=== PATIENT | female | born 1960 | race Caucasian/White ===

== ENCOUNTER 2018-05-21 07:16 | Inpatient (IN) ==
--- NOTE | 2018-05-20 21:39 | Discharge Summary ---
Orders not resulted at time of discharge: Pending orders 05/21/18 01:00 XR post op reverse apex LT [XR] Routine Hemoglobin and Hematocrit [HEME] Routine Date of Encounter: 05/21/18 Time of Encounter: 17:00 - Discharge Diagnosis (1) Osteoarthritis of left shoulder Priority: Primary Status: Chronic Qualifiers: Osteoarthritis type: unspecified Qualified Code(s): M19.012 - Primary osteoarthritis, left shoulder (2) Status post reverse total arthroplasty of left shoulder Priority: Primary Status: Acute (3) Asthma Priority: Secondary Status: Chronic Qualifiers: Asthma severity: unspecified severity Asthma persistence: unspecified Asthma complication type: unspecified Qualified Code(s): J45.909 - Unspecified asthma, uncomplicated (4) HTN (hypertension) Priority: Secondary Status: Chronic Qualifiers: Hypertension type: unspecified Qualified Code(s): I10 - Essential (primary) hypertension (5) Hypothyroid Priority: Secondary Status: Chronic Qualifiers: Hypothyroidism type: unspecified Qualified Code(s): E03.9 - Hypothyroidism, unspecified (6) Keloid Priority: Secondary Status: Chronic (7) HLD (hyperlipidemia) Priority: Secondary Status: Chronic Qualifiers: Hyperlipidemia type: unspecified Qualified Code(s): E78.5 - Hyperlipidemia, unspecified (8) Obesity Priority: Secondary Status: Chronic Qualifiers: Obesity type: unspecified obesity type Obesity classification: adult class 3 (BMI >= 40) Serious obesity comorbidity presence: unspecified whether serious comorbidity present Body mass index: unspecified BMI Qualified Code(s): E66.01 - Morbid (severe) obesity due to excess calories (9) GRACIELA (obstructive sleep apnea) Priority: Secondary Status: Chronic (10) Osteoporosis Priority: Secondary Status: Chronic Qualifiers: Osteoporosis type: unspecified Presence of current pathological fracture: unspecified Qualified Code(s): M81.0 - Age-related osteoporosis without current pathological fracture (11) OAB (overactive bladder) Priority: Secondary Status: Chronic (12) GERD (gastroesophageal reflux disease) Priority: Secondary Status: Chronic Qualifiers: Esophagitis presence: esophagitis presence not specified Qualified Code(s): K21.9 - Gastro-esophageal reflux disease without esophagitis - Hospital Course Hospital course: Ms. Weber is a 57 year old female Date of procedure: 05/21/18 Pre-op diagnosis: Shoulder cuff tear arthropathy left Post-op diagnosis: same Procedure: Total Shoulder Replacment Reverse, left Patient discharged home same day as surgery Keep outpatient follow up as scheduled - Time Spent with Patient Total time spent providing and/or coordinating discharge services: - Discharge Medications Home Medications: BuPROPion SR (12 HR) [Wellbutrin SR] 150 mg PO BID 04/15/16 [History] Enalapril Maleate [Vasotec] 10 mg PO QPM 04/15/16 [History] Fluticasone/Salmeterol [Advair 500-50 Diskus] 1 puff IH BID 04/15/16 [History] Gabapentin [Neurontin] 1,200 mg PO TID 04/15/16 [History] Levothyroxine [Synthroid] 50 mcg PO DAILY 04/15/16 [History] Montelukast [Singulair] 10 mg PO QPM 04/15/16 [History] Oxybutynin [Ditropan] 5 mg PO BID 04/15/16 [History] Albuterol Neb [Proventil Neb] 2.5 mg IH Q6H PRN 05/21/18 [History] Albuterol Sulfate [Ventolin Hfa] 2 puff IN QID PRN 05/21/18 [History] Cyanocobalamin (Vitamin B-12) [Vitamin B12] 1,000 mcg PO DAILY 05/21/18 [History] Docusate Sodium [Colace] 100 mg PO BID 5 Days #10 capsule 05/21/18 [Rx] Furosemide [Lasix] 20 mg PO DAILY 05/21/18 [History] OxyCODONE Immed Rel [Roxicodone 5 MG] 5 mg PO Q6HR PRN 7 Days #28 tablet 05/21/18 [Rx] Sertraline [Zoloft] 100 mg PO DAILY 05/21/18 [History] raNITIdine HCl [Zantac] 150 mg PO BID 05/21/18 [History] Allergies/Adverse Reactions: Allergy/AdvReac Type Severity Reaction Status Date / Time Buspirone [From BuSpar] Allergy See Verified 05/21/18 09:58 Comments Cromolyn [From Intal] Allergy SWELLING Verified 05/21/18 09:58 morphine Allergy Itching Verified 05/21/18 09:58 Sulfa (Sulfonamide Allergy Itching Verified 05/21/18 09:58 Antibiotics) Date of admission: 05/21/18 Primary care physician: Michael Hyman DO Discharging clinician: Zacarias Muñiz Anticipated date of discharge: 05/21/18 - VTE Documentation of Mechanical Device: Venous foot pump, device - Patient Status Disposition: Home, Self-Care Condition: Good Functional capacity at discharge: independent ambulation Overall status at discharge: patient is progressing back to baseline - Discharge Instructions Follow Up With: Michael Hyman DO [Primary Care Provider] - Additional Instructions: Discharge Instructions: Total Shoulder Please call [facility] ([phone]), your Primary Care Physician, or report to the Emergency Room if you have any of the following symptoms: Nausea, vomiting, fever greater that 101.5, swelling, chest pain, shortness of breath, increased pain/redness/drainage/odor for your incision site, numbness/tingling, or any other concerning symptoms. ACTIVITY: Always keep your arm in the sling. Do not raise your arm away from your body. Do not use your arm to help with getting in or out of bed. No weight bearing permitted. Only perform those exercises given to you by your therapist. Incentive Spirometer 10 times an hour. MEDICATIONS: Upon discharge resume your home medications. Take all the medications as prescribed. Take a stool softener if taking narcotic pain medications. Stool softeners are only effective if you drink enough fluids. Drink 6-8 glass of water or fluids a day, unless this is not allowed for another health problem. Despite using stool softeners, if you haven't had a bowel movement in 3 days, please switch to a gentle laxative. Gentle laxatives are sold over the counter. You should have a bowel movement within 24 hours, if not call the office. You will be discharged from the hospital with a prescription for pain medication. You are encouraged to decrease the use of narcotic pain medication as tolerated. Should you require a refill, please call the office. [facility] prescribes narcotic pain medication for only 4-6 weeks after surgery. If you require pain medication beyond this time period, you may be referred to your Primary Care Physician or to the Pain Clinic for further evaluation. Plan ahead for refills on pain medication as many narcotics either need to be picked up at the office or mailed. It is best to call 48-72 hours in advance of needing a prescription refill so you don't run out of medication. To help control the post-operative pain, you may take NSAIDs (Aleve,Advil, Motrin, Ibuprofen, Naprosyn) or Tylenol as prescribed on the bottle in addition to the pain medication. WOUND CARE: Leave the dressing on for 7-10 days. You may change the dressing if it becomes saturated greater than 50%. Do not get the dressing wet at anytime. Wash your hands with antibacterial soap, rinse and dry prior to any wound care. If you have rishabh the visiting nurse or rehab facility can remove the stapes 10-14 days after surgery and place steri-strips across the wound. Leave the steri-strips in place until they fall off on their own. You may let water from the shower run on top of the steri-strips. If you do not have a visiting nurse or rehab facility, you will need to return to the office at 10-14 days for the rishabh to be removed. If you have itching or redness around the dressing call the office. FOLLOW-UP: Please follow up with your surgeon in the orthopedic clinic, as scheduled - Diet and Activity Activity: as per physical therapy Diet: advance to your usual diet
[2018-05-21] MEDS ORDERED: CeFAZolin Syr 2,000MG/20 ML 2,000 MG/20 ML SYRINGE IVPB ONE (07:32)
[2018-05-21] MEDS ORDERED: Ringers Solution, Lactated 1,000 ML IVC SCH ×2 (07:45→11:53)
--- NOTE | 2018-05-21 07:52 | History & Physical Report ---
Date of Encounter: 05/21/18 Time of Encounter: 07:52 24 Hour HP Update - Instructions Instructions: If the History and Physical is less than 30 days old and was completed prior to A.M. admission and or procedure and has NOT been updated on calendar day of procedure please complete this update prior to performing procedure. - Update Patient reports changes in Medical Condition: No Changes in examination, assessment, or condition: No Changes in Medication: No Preop tests/diagnostics Reviewed: Yes Surgery Remains Indicated: Yes Consent for Planned Operative Procedure(s) Verified: Yes - Pre-Operative Checklist Preoperative Checklist Indicated: No Prophylactic Antibiotic Ordered: Yes Is VTE Prophylaxis Indicated?: Yes
[2018-05-21] MEDS ORDERED: Albuterol 2.5 MG/3 ML NEBULIZER IH ONE (07:54)
--- NOTE | 2018-05-21 08:05 | Anesthesia Evaluation PreOp ---
Date of Encounter: 05/21/18 Time of Encounter: 08:03 - Past History Planned Operation: LEFT TSA Cardiac History: CHF (TYRON LE EDEMA - ON LASIX), HTN Pulmonary History: Asthma, GRACIELA Dx (CLINICALLY, SCHEDULED FOR SLEEP STUDY) GAMBLING MONITOR History: Other (ANXIETY, DEPRESSION, LOW BACK PAIN, SCIATICA) Other Medical History: Thyroid, GERD (OCCASIONAL HEARTBURN, DYSPHAGIA), Other (MORBID OBESITY, BMI 42) Anesthesia History: No Prior Anesthetic Complications, Past Anesthesia (SEVERAL) Alcohol Use: none Drug use: none Medications and Allergies BuPROPion SR (12 HR) [Wellbutrin SR] 150 mg PO BID 04/15/16 [History] Enalapril Maleate [Vasotec] 10 mg PO HS 04/15/16 [History] Fluticasone/Salmeterol [Advair 500-50 Diskus] 1 puff IH BID 04/15/16 [History] Gabapentin [Neurontin] 600 mg PO TID 04/15/16 [History] Levothyroxine [Synthroid] 50 mcg PO DAILY 04/15/16 [History] Montelukast [Singulair] 10 mg PO HS 04/15/16 [History] Oxybutynin [Ditropan] 5 mg PO TID 04/15/16 [History] Allergy/AdvReac Type Severity Reaction Status Date / Time Buspirone [From BuSpar] Allergy See Verified 05/13/18 17:00 Comments Cromolyn [From Intal] Allergy See Verified 05/13/18 17:00 Comments morphine Allergy Itching Verified 05/13/18 17:00 Sulfa (Sulfonamide Allergy Hives Verified 05/13/18 17:00 Antibiotics) - Meds/Allergy Pre-op Review Medications Reviewed: Yes Allergies Reviewed: Yes Beta Blockers on Current Med List: No Anesthesia Exam O2 Sat Height 1.57 m Height 1.57 m Height 1.57 m Weight 105.233 kg Weight 105.233 kg Weight 105.233 kg O2 Sat by Pulse Oximetry 96 O2 Sat by Pulse Oximetry 96 Vital Signs Temp Pulse Resp BP Pulse Ox 98.5 F 83 18 124/69 96 05/21/18 07:35 05/21/18 07:35 05/21/18 07:35 05/21/18 07:35 05/21/18 07:35 NPO (# of Hours): >MN - HEENT Mallampati: I Teeth: Normal Oral Opening: Greater than 3 - Cardiac Rhythm: Regular - Pulmonary Breath Sounds: bilateral Clear Respiratory Effort: Symmetrical Anesthesia Assess/Plan ASA Score: 3 Anesthetic Plan: General, Regional Nerve Block (FOR POST OPERATIVE PAIN CONTROL) Regional Nerve Block Plan: Supraclavicular, Intercostobracial Monitoring Plan: Standard Monitors Recovery Plan: PACU
--- NOTE | 2018-05-21 08:07 | Physician Discharge Referral ---
Home Health/Hosp Referral Info Transfer to: Home Health Attending Provider: Dr. Zacarias Muñiz - Diagnosis (1) Osteoarthritis of left shoulder Priority: Primary Status: Chronic (2) Status post reverse total arthroplasty of left shoulder Priority: Primary Status: Acute (3) Asthma Priority: Secondary Status: Chronic (4) HTN (hypertension) Priority: Secondary Status: Chronic (5) Hypothyroid Priority: Secondary Status: Chronic (6) Keloid Priority: Secondary Status: Chronic (7) HLD (hyperlipidemia) Priority: Secondary Status: Chronic (8) Obesity Priority: Secondary Status: Chronic (9) GRACIELA (obstructive sleep apnea) Priority: Secondary Status: Chronic (10) Osteoporosis Priority: Secondary Status: Chronic (11) OAB (overactive bladder) Priority: Secondary Status: Chronic (12) GERD (gastroesophageal reflux disease) Priority: Secondary Status: Chronic - Respiratory Orders Smoking Cessation: Smoking cessation has been advised. For more information, call the [place] Tobacco Quit Line at 1-348-WVAJ-NOW. - Dressing/Wound Care Site: left shoulder Type of Dressing/Treatments w/Frequency: Opsite placed. Keep dressing intact until first follow up appointment. If greater than 50% saturated, notify office, remove dressing and place appropriate dressing back in place. Leave Zipline intact. Opsite dressing is water resistant, not water-proof. OK to shower, but do not get dressing wet. - Diet/Nutrition Diet/Nutrition Orders: Regular - Activity Activity Orders: Up ad fernanda, Ambulate Activity: List: PT/OT per protocol. NWB to affected upper extremity. Follow Shoulder Precautions x 6 weeks. Stay in brace during activity and at night. Remove brace during exercises. ICE and elevate extremity frequently throughout the day. - Services Needed Following services are medically necessary services: Nursing, Home Health Aide, Physical Therapy, Occupational Therapy, Med Social Work - Transfer Medications Home Medications: BuPROPion SR (12 HR) [Wellbutrin SR] 150 mg PO BID 04/15/16 [History] Enalapril Maleate [Vasotec] 10 mg PO HS 04/15/16 [History] Fluticasone/Salmeterol [Advair 500-50 Diskus] 1 puff IH BID 04/15/16 [History] Gabapentin [Neurontin] 600 mg PO TID 04/15/16 [History] Levothyroxine [Synthroid] 50 mcg PO DAILY 04/15/16 [History] Montelukast [Singulair] 10 mg PO HS 04/15/16 [History] Oxybutynin [Ditropan] 5 mg PO TID 04/15/16 [History] Allergies/Adverse Reactions: Allergy/AdvReac Type Severity Reaction Status Date / Time Buspirone [From BuSpar] Allergy See Verified 05/13/18 17:00 Comments Cromolyn [From Intal] Allergy See Verified 05/13/18 17:00 Comments morphine Allergy Itching Verified 05/13/18 17:00 Sulfa (Sulfonamide Allergy Hives Verified 05/13/18 17:00 Antibiotics) Certification: Further, I certify that my clinical findings support that this patient is homebound (i.e. absences from home require considerable and taxing effort and are for medical reasons or worship services or infrequently or short duration when for other reasons) because: Homebound Reason: Post-surgery restriction and or conditions limit ability to leave home Attestation: My signature below is to certify that this patient is under my care and that I, or nurse practitioner, or a physician assistant professor of surgery working with me, has a [id number] encounter with this patient.
[2018-05-21] MEDS ORDERED: Bupivacaine/Clonidine Syringe 1 EACH SYRINGE ONE (09:00)
[2018-05-21] MEDS ORDERED: ROPIVACAINE HCL/PF 0.5% 30 ML VIAL ONE (09:00)
[2018-05-21] MEDS ORDERED: Ethanol\\Acetic Acid\\Na Ace\\Ben 1,000 ML IRRIG.SOLN IR ONE (09:13)
[2018-05-21] MEDS ORDERED: *HR* FentaNYL (PF) 100 MCG/2 ML VIAL ONE (09:16)
[2018-05-21] MEDS ORDERED: *HR* Midazolam HCl 2 MG/2 ML VIAL ONE (09:16)
[2018-05-21] MEDS ORDERED: Ondansetron 4 MG/2 ML VIAL ONE (09:16)
[2018-05-21] MEDS ORDERED: Dexamethasone 4 MG/ML VIAL ONE (09:16)
[2018-05-21] MEDS ORDERED: *HR* Propofol 200 MG/20 ML VIAL IVP ONE (09:16)
[2018-05-21] MEDS ORDERED: *HR* Succinylcholine 200 MG/10 ML VIAL IVP ONE (09:16)
[2018-05-21] MEDS ORDERED: Lidocaine -MPF 2% 2 ML VIAL ONE (09:16)
--- NOTE | 2018-05-21 09:33 | Anesthesia Procedures ---
Date of Encounter: 05/21/18 Time of Encounter: 09:20 Procedures: Anesthesia - Nerve Block Procedure Date: 05/21/18 Time: 09:20 Allergies/Adv Reactions: Allergy/AdvReac Type Severity Reaction Status Date / Time Buspirone [From BuSpar] Allergy See Verified 05/13/18 17:00 Comments Cromolyn [From Intal] Allergy See Verified 05/13/18 17:00 Comments morphine Allergy Itching Verified 05/13/18 17:00 Sulfa (Sulfonamide Allergy Hives Verified 05/13/18 17:00 Antibiotics) Pre-op Diagnosis: left shoulder arthritis Surgical Procedure: left total shoulder arthroplasty Checklist: Correct Patient Identifier, Correct procedure, History checked Correct side: Left Blood Thinner: No Monitor Applied: BP, Pulse Oximetry Supplemental Oxygen via Nasal Cannula (L/min): 4 Sedation: Versed (mg): 2 Sedation: Fentanyl (mcg): 100 Indication: Post Op Analgesia Pre-op Neuro Deficits: No Block Type: Supraclavicular, Other (ICB, SCP) Catheter placed: No Sterile Technique: Yes Ultrasound used: Yes Anatomy identified: Yes Visual spread of Local: Yes Nerve Stimulator Range: >0.4 - 0.6 mA Blood on Needle Aspiration: No Smooth Injection of Local: Yes Pain with Injection of Local: No Prep: Chlorhexadine Needle: 22 x 50 mm Stimuplex Local: 0.25% Bupivicaine w/Clonidine 20 mcg/cc, Ropivacaine (and decadron) Volume (cc): 35 Number of Attempts: 1 Complications: None/effective block Vitals: Vital Signs Temperature 98.5 F 05/21/18 07:35 Pulse Rate 83 05/21/18 07:35 Respiratory Rate 18 05/21/18 07:35 Blood Pressure 124/69 05/21/18 07:35 O2 Sat by Pulse Oximetry 96 05/21/18 07:35 Temperature 98.5 F 05/21/18 07:35 Pulse Rate 78 05/21/18 09:26 Respiratory Rate 16 05/21/18 09:26 Blood Pressure 122/61 05/21/18 09:26 O2 Sat by Pulse Oximetry 100 05/21/18 09:26
[2018-05-21] MEDS ORDERED: *HR* PHENYLEPHRINE 1,000 MCG/10 ML SYRINGE IVP ONE (10:20)
--- NOTE | 2018-05-21 10:45 | Orthopedic Operative Note ---
Date of procedure: 05/21/18 Pre-op diagnosis: Shoulder cuff tear arthropathy left Post-op diagnosis: same Procedure: Procedure: Total Shoulder Replacment Reverse, left Estimated blood loss: 50 cc Hardware: Metal and polyethylene replacement: Arthrex 24, +2 , 25 screw glenoid baseplate, 4 locking 5.5 screw, 39+4 glenosphere,5 humeral stem, poly insert 3 Exam Under anesthesia: Full motion no instability Procedural Notes: Irreparable tear rotator cuff Operative procedure: The patient was brought to the operating room and placed on the operating room table. After general anesthesia was administered the operative shoulder was examined. Findings were noted. The patient was placed in the modified beachchair position. All pressure points were padded appropriately. And the head was stabilized in the neutral position. The operative extremity was prepped and draped in the sterile surgical fashion. The patient received IV antibiotics prior to skin incision. A standard deltopectoral approach was made to the operative shoulder. Incision was made to the skin and subcutaneous tissue,hemo stasis was obtained with Bovie cautery. Using careful blunt dissection the cephalic vein was identified and mobilized medially. The deltopectoral interval was developed and the clavipectoral fascia was incised. The subscap was released off the lesser tuberosity and tagged with #2 FiberWire suture subscap was irreparable. The humerus was dislocated patient noted to have irreparable tear supraspinatus tendon, and the humeral cut was made along the anatomic neck. Anterior and posterior Bankart retractors were placed to expose the glenoid. The glenoid guide was seated and the centering hole was made. It was reamed with the appropriate reamer. The 24, +2, 25 mm screw, baseplate was seated and secured with 4 locking 5.5 screw. The baseplate was irrigated and dried and the 39+4 Glenosphere was seated and secured with the Chou taper. The Chou taper was tested and found to be secure, glenosphere fixation was secondarily secured with the central screw. The humerus was redislocated and prepared with the diaphyseal reamers, followed by a broaching process up to the appropriate size 5 in the patient's anatomic version. The metaphyseal reamer was then utilized. Trial reduction found the shoulder to be relocatable. Trial components were removed and 5 stem was impacted in place in the patient's anatomic version. Trial reduction found the shoulder to be relocatable and stable with the appropriate 3. Trial component was removed and the real implant was seated and secured the shoulder was reduced. The shoulder had excellent motion and excellent stability and no evidence of dislocation. The deep tissue was irrigated with pulse irrigation. The PA close the shoulder. The deltopectoral interval was closed with a running #1 PDS suture, subcutaneous tissue was irrigated and closed with 0 PDS suture, the skin was closed with Dermabond. The patient was placed in a sterile dressing, abduction brace and extubated. The patient was then transferred to the recovery room in stable condition. Anesthesia: ALEXY Surgeon: Zacarias Muñiz Was there an physicians assistant present: Yes Filling Carrier: Ana Ramires Estimated blood loss (cc): 50 Condition: stable Disposition: PACU
--- NOTE | 2018-05-21 11:44 | Anesthesia Evaluation Post Op ---
Date of Encounter: 05/21/18 Time of Encounter: 11:42 - Vital Signs Vital Signs: vss - Lungs Lungs: Clear Ascult./Percussion - Airway Airway: Non-obstructed - Mental Status Mental Status: Alert & Oriented, Answers Appropriately - Pain Pain Scale used: Celio (Faces) - Nausea Vomiting Nausea Vomiting: Not Present - Hydration Hydration: Ice chips - Discharge PostOp Status: Transfer Patient to floor
[2018-05-21 11:52] LABS: Hematocrit 41.1 % (35.3-44.9)
[2018-05-21] MEDS ORDERED: Temazepam 15 MG CAPSULE PO PRN (11:53)
[2018-05-21] MEDS ORDERED: Sennosides 8.6 MG TABLET PO PRN (11:53)
[2018-05-21] MEDS ORDERED: *HR* OxyCODONE Immed Rel 5 MG TABLET PO PRN (11:53)
[2018-05-21] MEDS ORDERED: *HR* OxyCODONE/APAP 5/325 TABLET PO PRN (11:53)
[2018-05-21] MEDS ORDERED: MOM Conc 10 ML UD.LIQ PO PRN (11:53)
[2018-05-21] MEDS ORDERED: Ondansetron 4 MG/2 ML VIAL IVP PRN (11:53)
[2018-05-21] MEDS ORDERED: Naloxone 0.4 MG/ML INJ IVP PRN (11:53)
[2018-05-21] MEDS ORDERED: traMADol 50 MG TABLET PO PRN (11:53)
[2018-05-21] MEDS ORDERED: *HR* Enoxaparin 30 MG/0.3 ML SYRINGE SQ SCH ×3 (14:10→18:00)
[2018-05-21 15:17] VITALS: BP 120/80
== END 2018-05-21 17:00 | disposition home or self-care (01) | DRG 483 ==
LOC: SAMDAY 07:16 → 3NENU 11:46
PROVIDERS: ADMIT Orthopaedic Surgery; ATTEND Orthopaedic Surgery

== ENCOUNTER 2019-06-17 07:03 | Inpatient (IN) ==
[~2019-06-17 07:03] MED LIST: Gabapentin 300 MG CAPSULE PO ONE; Ipratropium/Albuterol Neb 3 ML IH ONE
[2019-06-17] MEDS ORDERED: Albuterol 2.5 MG/3 ML NEBULIZER IH PRN ×2 (07:49→12:57)
[2019-06-17] MEDS ORDERED: CeFAZolin Syr 2,000MG/20 ML 2,000 MG/20 ML SYRINGE IVPB ONE (07:49)
[2019-06-17] MEDS ORDERED: Ethanol\\Acetic Acid\\Na Ace\\Ben 1,000 ML IRRIG.SOLN IR ONE (07:50)
[2019-06-17] MEDS ORDERED: *HR* Propofol 200 MG/20 ML VIAL IVP ONE ×2 (07:57→10:59)
[2019-06-17] MEDS ORDERED: *HR* FentaNYL (PF) 100 MCG/2 ML VIAL ONE (07:58)
[2019-06-17] MEDS ORDERED: *HR* Midazolam HCl 2 MG/2 ML VIAL ONE (07:58)
[2019-06-17 07:59] LABS: Prothrombin Time 10.8 Seconds (9.4-12.1)
[2019-06-17 08:01] LABS: Activated Partial Thrombo Time 33.3 Seconds (26.0-36.0)
[2019-06-17] MEDS ORDERED: Lidocaine -MPF 2% 2 ML VIAL ONE (08:01)
[2019-06-17] MEDS ORDERED: Dexamethasone 4 MG/ML VIAL ONE ×2 (08:01→08:06)
[2019-06-17] MEDS ORDERED: Ondansetron 4 MG/2 ML VIAL ONE (08:01)
[2019-06-17] MEDS ORDERED: *HR* Rocuronium Bromide 50 MG/5 ML VIAL ONE (08:01)
[2019-06-17] MEDS ORDERED: *HR* Succinylcholine 200 MG/10 ML VIAL IVP ONE (08:03)
[2019-06-17] MEDS ORDERED: Ropivacaine/PF 0.5% 30 ML VIAL ONE (08:10)
[2019-06-17] MEDS ORDERED: ROPIVACAINE/PF/NS 0.25% 1 EACH SYRINGE INTRAART ONE (08:10)
[2019-06-17] MEDS: Ringers Solution, Lactated 1,000 ML IVC SCH ×2 (08:28→11:16)
[2019-06-17] MEDS ORDERED: Famotidine 20 MG/2 ML VIAL IVP ONE (08:28)
[2019-06-17] MEDS ORDERED: Ondansetron 4 MG/2 ML VIAL IVP PRN ×2 (08:28→12:57)
[2019-06-17] MEDS ORDERED: *HR* Labetalol 20 MG/4 ML SYRINGE IVP PRN (08:28)
[2019-06-17] MEDS ORDERED: Lidocaine HCL 4 ML Topical Solution (Laryng-O-Jet Kit Sterile Pak) TP ONE (09:20)
[2019-06-17] MEDS ORDERED: *HR* Vasopressin 20 UNIT/ML VIAL ONE (10:18)
[2019-06-17] MEDS ORDERED: *HR* PHENYLEPHRINE 1,000 MCG/10 ML SYRINGE IVP ONE (10:54)
[2019-06-17] MEDS: *HR* HYDROmorphone (PF) 1 MG/ML SYRINGE IVP PRN ×4 (11:52→12:25)
[2019-06-17] MEDS ORDERED: Naloxone 0.4 MG/ML INJ IVP PRN (12:57)
[2019-06-17] MEDS ORDERED: *HR* OxyCODONE/APAP 5/325 TABLET PO PRN (12:57)
[2019-06-17] MEDS ORDERED: Sennosides 8.6 MG TABLET PO PRN (12:57)
[2019-06-17] MEDS ORDERED: Ringers Solution, Lactated 1,000 ML IVC SCH (12:57)
[2019-06-17] MEDS ORDERED: Furosemide 20 MG TABLET PO SCH (12:57)
[2019-06-17] MEDS ORDERED: *HR* OxyCODONE Immed Rel 5 MG TABLET PO PRN (12:57)
[2019-06-17] MEDS ORDERED: MOM Conc 10 ML UD.LIQ PO PRN (12:57)
[2019-06-17] MEDS ORDERED: ceFAZolin 2,000 MG in 0.9 % Sodium Chloride 100 ML IVPB SCH (16:00)
[2019-06-17 17:15] VITALS: BP 126/82
[2019-06-17] MEDS ORDERED: *HR* Enoxaparin 30 MG/0.3 ML SYRINGE SQ SCH ×2 (18:00)
[2019-06-17] MEDS ORDERED: Lisinopril 20 MG TABLET PO SCH (18:00)
[2019-06-17] MEDS ORDERED: Famotidine 20 MG TABLET PO SCH (21:00)
[2019-06-17] MEDS ORDERED: Gabapentin 400 MG CAPSULE PO SCH (21:00)
[2019-06-17] MEDS ORDERED: BuPROPion SR (12 HR) 150 MG TABLET PO SCH (21:00)
[2019-06-17] MEDS ORDERED: Budesonide/Formoterol 160/4.5 1 PUFF INH IH SCH (22:00)
== END 2019-06-17 17:30 | disposition home or self-care (01) | DRG 483 ==
LOC: SAMDAY 07:03 → 3NENU 12:52
PROVIDERS: ADMIT Orthopaedic Surgery; ATTEND Orthopaedic Surgery